=== PATIENT | female | born 1945 | race Caucasian/White ===

== ENCOUNTER 2023-01-24 10:56 | Outpatient (CLI) | payer MEDICARE, BC ==
--- NOTE | 2023-01-30 10:52 | Mammography Report ---
BILATERAL DIGITAL SCREENING MAMMOGRAM 3D/2D: 01/24/2023 CLINICAL: Routine screening. No prior exams were available for comparison. There are scattered areas of fibroglandular density in both breasts (category b / 25%-50% glandular t issue). There are grouped linear calcifications in the right breast at 11 o'clock middle depth. No other significant masses, calcifications, or other findings are seen in either breast. IMPRESSION: INCOMPLETE: NEEDS ADDITIONAL IMAGING EVALUATION The grouped linear calcifications in the right breast are indeterminate. Magnification and lateral v iews are recommended. Based on the Tyrer Cuzick model (a risk assessment model) the patients lifetime risk is 2.6% and her 10 year risk is 2.6%. According to the ACR, ACS, and NCCN guidelines, an annual breast MRI exam irene g with mammogram is recommended if the patients lifetime risk is 20% or greater. This exam was interpreted at Station ID: [id number]. NOTE: For mammograms, a report in lay terms will be sent to the patient. Approximately 15% of breast malignancies will not be visualized mammographically. In the management of a palpable breast mass, a negative mammogram must not discourage biopsy of a clinically suspicious lesion. Electronically Signed By: Khadijah kovacs/dorian:01/27/2023 15:16:56 letter sent: No_Letter ACR BI-RADS Category 0: Incomplete 3340F PARENCHYMAL PATTERN: (A) - The breast(s) demonstrate(s) scattered fibroglandular densities. BI-RADS CATEGORY: (0) - 0 RECOMMENDATION: (ADDMAM) - Recommend additional mammographic views. [id number] Immediate follow-up LATERALITY: (B)
== END 2023-01-24 10:57 | disposition home or self-care (01) ==
LOC: DI.S 10:56
PROVIDERS: ATTEND Nurse Practitioner Family
DX: Z12.31 Encounter for screening mammogram for malignant neoplasm of breast (principal); R92.1 Mammographic calcification found on diagnostic imaging of breast

== ENCOUNTER 2023-02-24 10:01 | Outpatient (CLI) | payer MEDICARE, BC ==
--- NOTE | 2023-02-27 11:59 | Mammography Report ---
UNILATERAL RIGHT DIGITAL DIAGNOSTIC MAMMOGRAM 3D/2D WITH MAGNIFICATION: 02/24/2023 CLINICAL: Patient returns for magnification views of microcalcifications in the right breast. Comparison is made to exam dated: 01/24/2023 mammogram - [facility]. There are scattered areas of fibroglandular density in the right breast (category b / 25%-50% glandul ar tissue). There are grouped linear coarse dystrophic round calcifications in the right breast at 10 o'clock mid dle depth. No other significant masses or calcifications are seen in the breast. IMPRESSION: PROBABLY BENIGN The calcifications in the right breast are probably benign. A follow-up right mammogram in 6 months is recommended to demonstrate stability. Findings and recommendations were conveyed to the patient at time of exam. Based on the Tyrer Cuzick model (a risk assessment model) the patients lifetime risk is 2.6% and her 10 year risk is 2.6%. According to the ACR, ACS, and NCCN guidelines, an annual breast MRI exam irene g with mammogram is recommended if the patients lifetime risk is 20% or greater. This exam was interpreted at Station ID: [id number]. NOTE: For mammograms, a report in lay terms will be sent to the patient. Approximately 15% of breast malignancies will not be visualized mammographically. In the management of a palpable breast mass, a negative mammogram must not discourage biopsy of a clinically suspicious lesion. Electronically Signed By: Khadijah kovacs/:02/24/2023 10:46:31 ACR BI-RADS Category 3: Probably benign 3343F PARENCHYMAL PATTERN: (A) - The breast(s) demonstrate(s) scattered fibroglandular densities. BI-RADS CATEGORY: (3) - 3 Mammogram [id number] 6 month follow-up LATERALITY: (R)
== END 2023-02-24 10:02 | disposition home or self-care (01) ==
LOC: DI 10:01
PROVIDERS: ATTEND Nurse Practitioner Family
DX: R92.2 Inconclusive mammogram (principal)

== ENCOUNTER 2023-09-07 09:05 | Outpatient (CLI) | payer MEDICARE, BC ==
--- NOTE | 2023-09-08 12:06 | Mammography Report ---
UNILATERAL RIGHT DIGITAL DIAGNOSTIC MAMMOGRAM 3D/2D WITH MAGNIFICATION: 09/07/2023 CLINICAL: Patient returns for a 6 month follow up of the right breast. Comparison is made to exams dated: 02/24/2023 mammogram and 01/24/2023 mammogram - [facility]. There are scattered areas of fibroglandular density in the right breast (category b / 25%-50% glandul ar tissue). There are stable grouped possibly dystrophic calcifications in the right breast at 10 o'clock middle depth. No other significant masses or calcifications are seen in the breast. IMPRESSION: PROBABLY BENIGN The stable grouped possibly dystrophic calcifications in the right breast are probably benign. A follow-up mammogram in 6 months is recommended to demonstrate stability. Based on the Tyrer Cuzick model (a risk assessment model) the patient's lifetime risk is 2.4% and her 10 year risk is 0.0%. According to the ACR, ACS, and NCCN guidelines, an annual breast MRI exam irene g with mammogram is recommended if the patient's lifetime risk is 20% or greater. This exam was interpreted at Station ID: [id number]. NOTE: For mammograms, a report in lay terms will be sent to the patient. Approximately 15% of breast malignancies will not be visualized mammographically. In the management of a palpable breast mass, a negative mammogram must not discourage biopsy of a clinically suspicious lesion. Electronically Signed By: Rasheed Underwood M.D. lc/:09/07/2023 09:46:18 ACR BI-RADS Category 3: Probably benign 3343F PARENCHYMAL PATTERN: (A) - The breast(s) demonstrate(s) scattered fibroglandular densities. BI-RADS CATEGORY: (3) - 3 Mammogram [id number] 6 month follow-up LATERALITY: (B)
== END 2023-09-07 09:06 | disposition home or self-care (01) ==
LOC: DI 09:05
PROVIDERS: ATTEND Nurse Practitioner Family
DX: R92.1 Mammographic calcification found on diagnostic imaging of breast (principal); R92.321 Mammographic fibroglandular density, right breast

== ENCOUNTER 2023-12-28 11:31 | Outpatient (CLI) | payer MEDICARE, BC ==
--- NOTE | 2023-12-29 17:37 | Ultrasound Report ---
PROCEDURE: Arterial Duplex Lwr Ext LT INDICATIONS: TOE DISCOLORATION TECHNIQUE: Color and pulse Doppler interrogation was performed of the left lower extremity arterial system, with image documentation. COMPARISON: None FINDINGS: Common femoral artery: 124 cm/sec, with biphasic flow. Deep femoral artery: 89 cm/sec, with triphasic flow. Proximal superficial femoral artery: 87 cm/sec, with biphasic flow. Mid superficial femoral artery: 121 cm/sec, with biphasic flow. Distal superficial femoral artery: 106 cm/sec, with triphasic flow. Popliteal artery: 78 cm/sec, with triphasic flow. Posterior tibial artery: 74 cm/sec, with biphasic flow. Anterior tibial artery/dorsalis pedis: 71/80 cm/sec, with biphasic flow. Espinoza-scale imaging description: Minimal scattered plaque. IMPRESSION: Patent lower extremity vasculature without hemodynamically significant stenosis. Reviewed by: Paola Arzate MD on 12/29/2023 5:36 PM PDT Approved by: Paola Arzate MD on 12/29/2023 5:36 PM PDT Station ID: [id number]
== END 2023-12-28 11:32 | disposition home or self-care (01) ==
LOC: DI 11:31
PROVIDERS: ATTEND Registered Nurse
DX: L81.9 Disorder of pigmentation, unspecified (principal); M79.675 Pain in left toe(s); L08.9 Local infection of the skin and subcutaneous tissue, unspecified

== ENCOUNTER 2024-04-02 08:32 | Outpatient (CLI) | payer MEDICARE, BC ==
--- NOTE | 2024-04-03 11:35 | Mammography Report ---
BILATERAL DIGITAL DIAGNOSTIC MAMMOGRAM 3D/2D WITH MAGNIFICATION: 04/02/2024 CLINICAL: Patient returns for a 6 month follow up of the right breast, due for bilateral exam. Comparison is made to exams dated: 09/07/2023 mammogram, 02/24/2023 mammogram, and 01/24/2023 mammogram - [facility]. There are scattered areas of fibroglandular density in both breasts (category b / 25%-50% glandular t issue). There are stable grouped possibly dystrophic calcifications in the right breast at 10 o'clock middle depth. No other significant masses, calcifications, or other findings are seen in either breast. IMPRESSION: PROBABLY BENIGN The stable grouped possibly dystrophic calcifications in the right breast are probably benign. A follow-up mammogram in 12 months is recommended to demonstrate long-term stability. Exam findings were conveyed to the patient. Based on the Tyrer Cuzick model (a risk assessment model) the patient's lifetime risk is 2.2% and her 10 year risk is 0.0%. According to the ACR, ACS, and NCCN guidelines, an annual breast MRI exam irene g with mammogram is recommended if the patient's lifetime risk is 20% or greater. This exam was interpreted at Station ID: [id number]. NOTE: For mammograms, a report in lay terms will be sent to the patient. Approximately 15% of breast malignancies will not be visualized mammographically. In the management of a palpable breast mass, a negative mammogram must not discourage biopsy of a clinically suspicious lesion. Electronically Signed By: Elan Turcios M.D. slc/:04/02/2024 09:30:17 ACR BI-RADS Category 3: Probably benign 3343F PARENCHYMAL PATTERN: (A) - The breast(s) demonstrate(s) scattered fibroglandular densities. BI-RADS CATEGORY: (3) - 3 Mammogram [id number] 12 month follow-up LATERALITY: (B)
== END 2024-04-02 08:33 | disposition home or self-care (01) ==
LOC: DI 08:32
PROVIDERS: ATTEND Nurse Practitioner Family
DX: R92.1 Mammographic calcification found on diagnostic imaging of breast (principal); R92.321 Mammographic fibroglandular density, right breast